=== PATIENT | female | born 1995 | race Caucasian/White ===

== ENCOUNTER 2020-11-04 23:25 | Emergency (ER) | payer SELFPAY ==
[~2020-11-04] VITALS: Ht 157.5 cm; Wt 57.6 kg
[2020-11-04] MEDS ORDERED: KETOROLAC TROMETHAMINE INJ 60 MG/2 ML VIAL IM ONE (23:43)
[2020-11-04] MEDS ORDERED: CYCL10TA9 PO (23:43)
[2020-11-04] MEDS ORDERED: PRED50TA PO (23:43)
[2020-11-04] MEDS ORDERED: CYCLOBENZAPRINE 10 MG TABLET ONE (23:43)
[2020-11-04] MEDS ORDERED: IBUP-1957 PO (23:43)
[2020-11-04] MEDS ORDERED: DEXAMETHASONE SOD PHOSPHATE 10 MG/ML VIAL ONE (23:43)
[2020-11-05] MEDS ORDERED: KETOROLAC TROMETHAMINE INJ 60 MG/2 ML VIAL IM ONE
[2020-11-05] MEDS ORDERED: CYCLOBENZAPRINE 10 MG TABLET PO ONE
[2020-11-05] MEDS ORDERED: DEXAMETHASONE SOD PHOSPHATE 4 MG/ML VIAL IM ONE
[2020-11-05 01:07] VITALS: BP 98/49
== END 2020-11-05 01:08 | disposition home or self-care (01) ==
LOC: ER 23:28
DX: M54.5 Low back pain (principal); Z79.899 Other long term (current) drug therapy; X58.XXXA Exposure to other specified factors, initial encounter; Y93.89 Activity, other specified; Y92.89 Other specified places as the place of occurrence of the external cause; Y99.8 Other external cause status
CPT/HCPCS: 96372 ×2; 99284; J1100; J1885